=== PATIENT | female | born 1985 | race Two or more races ===

== ENCOUNTER 2021-12-06 20:49 | Emergency (ER) | payer OTHER ==
[~2021-12-06] VITALS: Ht 157.5 cm; Wt 75.3 kg
[2021-12-06] MEDS ORDERED: MEDROXYPROGESTE10 MG PO (22:57)
== END 2021-12-07 00:52 | disposition home or self-care (01) ==
LOC: ER 20:49
DX: N93.8 Other specified abnormal uterine and vaginal bleeding (principal); D25.9 Leiomyoma of uterus, unspecified